=== PATIENT | male | born 1985 | race Caucasian/White ===

== ENCOUNTER 2017-06-02 14:34 | Emergency (ER) | payer SELFPAY ==
[2017-06-02 14:55] VITALS: TEMP 98.2; O2SAT 96
[2017-06-02] MEDS ORDERED: SULFAMETHOX/TMP 800/160 MG 1 TAB PO ONE (15:02)
[2017-06-02] MEDS ORDERED: CEPHALEXIN 500 MG CAP PO ONE (15:03)
--- NOTE | 2017-06-02 15:07 | EDPHY ---
H & P Time Seen by Provider: 06/02/17 14:51 HPI/ROS: HPI Rash. 32-year-old male on foot. He states he is traveling. He states that he was released from the snf in [place]. He reports he is passing through and going to get on a bus soon to go somewhere else. He states that he has had a rash that he describes as pock like gray and heavy acne since getting out of snf a few weeks ago. He describes it as itchy and over most of his body. No oral involvement. ROS: Constitutional: No fever, no chills. No weakness. Eyes: No discharge. No changes in vision. ENT: No sore throat. No nasal congestion or rhinorrhea. Respiratory: No cough. No shortness of breath. Cardiac: No chest pain, no palpitations. Gastrointestinal: No abdominal pain, no vomiting, no diarrhea. Genitourinary: No hematuria. No dysuria or increased frequency with urination. Musculoskeletal: No back pain. No neck pain. No myalgias or arthralgias. Skin: As above. Neurological: No headache. No focal weakness or altered sensation. Past medical history: He states he had throat surgery secondary to abscesses in his neck. This was while he was in snf as well. Social history: Former smoker. Has used drugs in the past. Denies alcohol. Physical Exam: General Appearance: Alert, no distress. This patient is responding to questions appropriately and in full sentences. This patient appears well- hydrated and well-nourished. Eyes: Pupils equal and round no pallor or injection. No lid edema, erythema or injection. ENT, Mouth: Mucous membranes are moist. The pharyngeal tissues are unremarkable. No edema or swelling. No asymmetry suggestive of abscess. No erythema or exudates. No oral involvement. Neurological: Motor sensory function is grossly intact. Cranial nerves are normal. Gait is normal. Skin: Warm and dry, pock like lesions on his trunk and extremities. More concentrated on his mid and lower back. This appears to look like acne versus infected hair follicles. Scabies is also a possibility although I did not see definitive track gray. Faint surrounding erythema to each lesion. This is blanching. I do not appreciate any petechiae. No bullae. Musculoskeletal: Neck is supple and nontender. No pain on flexion of the neck. Extremities are symmetrical. All joints range without pain or impingement. Psychiatric: No agitation. No depression. Database: EKG: Imaging: Procedures: Emergency department course: After my evaluation of this patient I discussed the differential diagnosis with him including strep and staph infections of the skin as well as scabies. Plan will be to prescribe him Keflex and Bactrim as well as permethrin cream. He was given a dose of Keflex and Bactrim DS tablet in the emergency department. I discussed follow-up through [facility]. I discussed assistance through [facility] in filling his prescriptions for these medications. Return to emergency department precautions were reviewed with him. All of his questions were answered. He feels comfortable being discharged. He was discharged in good condition. Differential Diagnosis: The differential diagnosis on this patient includes but is not limited to staphylococcal versus streptococcal skin infection, folliculitis, scabies. This represents a partial list of diagnoses considered. These considerations are based on history, physical exam, past history, and reassessment. Smoking Status: Current every day smoker Constitutional: Initial Vital Signs Temperature (C) 36.8 C 06/02/17 14:52 Heart Rate 120 H 06/02/17 14:52 Respiratory Rate 18 06/02/17 14:52 Blood Pressure 147/104 H 06/02/17 14:52 O2 Sat (%) 96 06/02/17 14:52 O2 Delivery Mode Room Air Allergies/Adverse Reactions: No Known Allergies Allergy (Unverified 06/02/17 14:57) Home Medications: Medication Instructions Recorded Cephalexin [Keflex (*)] 500 mg PO Q6 7 Days 06/02/17 Permethrin 5% [Elimite 5%] 60 gm TP DAILY #1 cream 06/02/17 Sulfamethox/Tmp 800/160 mg 1 tab PO BID@1000,2200 #7 tab 06/02/17 [Bactrim Ds] Medical Decision Making - Data Points Medications Given: Discontinued Medications Cephalexin HCl (Keflex) 500 mg PO EDNOW ONE PRN Reason: Protocol Stop: 06/02/17 15:04 Last Admin: 06/02/17 15:10 Dose: 500 mg Trimethoprim/Sulfamethoxazole (Bactrim Ds) 1 ea PO EDNOW ONE PRN Reason: Protocol Stop: 06/02/17 15:03 Last Admin: 06/02/17 15:09 Dose: 1 ea Departure - Departure Disposition: Home, Routine, Self-Care Clinical Impression: Rash Condition: Good Instructions: Acute Rash (ED) Additional Instructions: Read and follow provided instructions. Follow-up [facility], as discussed for re-evaluation as well as assistance with filling prescriptions. Take medication as prescribed only and through entire course of treatment. Return to the emergency department for worsening rash, throat swelling, difficulty breathing, fever or other serious concerns. Referrals: ROHAN BARROSO,. [Clinic] - As per Instructions Prescriptions: Cephalexin [Keflex (*)] 500 mg PO Q6 7 Days Permethrin 5% [Elimite 5%] 60 gm TP DAILY #1 cream Sulfamethox/Tmp 800/160 mg [Bactrim Ds] 1 tab PO BID@1000,2200 #7 tab
[2017-06-02 15:38] VITALS: BP 150/95; PULSE 102; RESP 16
== END 2017-06-02 15:40 | disposition home or self-care (01) ==
LOC: CED 14:34
DX: R21 Rash and other nonspecific skin eruption (principal); F17.200 Nicotine dependence, unspecified, uncomplicated